=== PATIENT | female | born 1930 | race Caucasian/White ===

== ENCOUNTER → 2016-09-21 | Outpatient (REF) | payer MEDICARE, OTHER ==
[~2016-09-21] MED LIST: /ALEN70TA; /ZIAC5TA; CITRACAL; FISHCAP; FLEXERIL; ROSU10TA; THERGRAN; TRAM50TA2; VITA500T; VITAMIN D; VITAMIN E; ZETI10TA
[2016-09-21 13:55] LABS: FOLATE > 24.0 NG/ML; VITAMIN B12 LEVEL 593 PG/ML
== END ==
LOC: M LAB REF 13:24
PROVIDERS: ATTEND Internal Medicine
DX: D64.9 Anemia, unspecified (principal)

== ENCOUNTER → 2016-10-30 | Outpatient (REF) | payer MEDICARE, OTHER | LOC: M LAB REF 13:06 | PROVIDERS: ATTEND Nurse Practitioner Adult Health | DX: N39.0 Urinary tract infection, site not specified (principal) ==